=== PATIENT | male | born 1970 | race Caucasian/White ===

== ENCOUNTER 2020-04-14 07:50 | Emergency (ER) | payer OTHER ==
[~2020-04-14] VITALS: Ht 170.2 cm; Wt 106.6 kg
[~2020-04-14 07:50] MED LIST: NABUMETONE500 MG PO; PERCOCET 5/3251 TAB PO
[2020-04-14] MEDS ORDERED: CIPRO500 MG PO (14:20)
== END 2020-04-14 15:38 | disposition home or self-care (01) ==
LOC: ER 07:50
DX: R31.9 Hematuria, unspecified (principal); Z20.828 Contact with and (suspected) exposure to other viral communicable diseases